=== PATIENT | male | born 1980 | race Caucasian/White ===

== ENCOUNTER 2021-07-04 22:24 | Emergency (ER) | payer BC, OTHER ==
--- NOTE | 2021-07-04 23:44 | EDM.PDOC ---
ED HPI GENERAL MEDICAL PROBLEM - General Chief Complaint: General Stated Complaint: SWELLING RIGHT UPPER RIGHT CALF JUST HAD SURGERY Time Seen by Provider: 07/04/21 23:35 Source of Information: Reports: Patient, Family History Limitations: Reports: No Limitations - History of Present Illness INITIAL COMMENTS - FREE TEXT/NARRATIVE: Patient presented to the ED because of redness and pain on his right upper leg area. He is post op achilles tendon surgery at [facility] 4 days ago. Right Middle Leg Pain Score (Numeric/FACES): 6 - Related Data Allergies Allergy/AdvReac Type Severity Reaction Status Date / Time No Known Allergies Allergy Verified 07/04/21 22:44 Home Meds: Home Meds Acetaminophen [Tylenol Extra Strength] 1,000 mg PO Q6H 07/04/21 [History] Aspirin 1 tab PO DAILY 07/04/21 [History] Docusate Sodium 1 tab PO DAILY 07/04/21 [History] Ibuprofen [Motrin] 600 mg PO Q6H 07/04/21 [History] oxyCODONE 5 mg PO Q4H PRN 07/04/21 [History] Past Medical History - Past Surgical History Musculoskeletal Surgical History: Reports: Other (See Below) Other Musculoskeletal Surgeries/Procedures:: acillies tendon repair 06/30/21 Social & Family History - Tobacco Use Tobacco Use Status *Q: Never Tobacco User - Caffeine Use Caffeine Use: Reports: Coffee - Recreational Drug Use Recreational Drug Use: No ED ROS GENERAL - Review of Systems Review Of Systems: See Below Constitutional: Reports: No Symptoms HEENT: Reports: No Symptoms Respiratory: Reports: No Symptoms Cardiovascular: Reports: No Symptoms Endocrine: Reports: No Symptoms GI/Abdominal: Reports: No Symptoms : Reports: No Symptoms Musculoskeletal: Reports: No Symptoms Skin: Reports: Change in Color Neurological: Reports: No Symptoms ED EXAM, GENERAL - Physical Exam Exam: See Below Exam Limited By: No Limitations General Appearance: Alert, No Apparent Distress Ears: Normal External Exam, Normal Canal Nose: Normal Inspection, Normal Mucosa Throat/Mouth: Normal Inspection, Normal Lips Head: Atraumatic, Normocephalic Neck: Normal Inspection, Supple, Non-Tender Respiratory/Chest: No Respiratory Distress, Lungs Clear, Normal Breath Sounds, No Accessory Muscle Use, Chest Non-Tender Cardiovascular: Normal Peripheral Pulses, Regular Rate, Rhythm, No Edema, No JVD, No Murmur GI/Abdominal: Normal Bowel Sounds, Soft, Non-Tender, No Organomegaly Back Exam: Normal Inspection, Full Range of Motion Extremities: Normal Inspection, Normal Range of Motion Neurological: Alert, Oriented, CN II-XII Intact Psychiatric: Normal Affect Skin Exam: Warm, Other (purplish discoloration proximal part of R leg) Course - Vital Signs Text/Narrative:: Lab result was reviewed and discussed with patient and his spouse Last Recorded V/S: Last Vital Signs Temp 37.0 C 07/04/21 22:30 Pulse 67 07/04/21 22:30 Resp 18 07/04/21 22:30 BP 143/82 H 07/04/21 22:30 Pulse Ox 96 07/04/21 22:30 - Orders/Labs/Meds Labs: Laboratory Tests 07/04/21 07/04/21 Range/Units 23:05 23:05 WBC 5.0 (3.2-10.1) x10-3/uL RBC 4.85 (3.90-5.90) x10(6)uL Hgb 14.9 (12.9-17.7) g/dL Hct 43.7 (38.3-50.1) % MCV 90.1 (80.8-98.7) fL MCH 30.8 (27.0-33.3) pg MCHC 34.1 (28.7-35.3) g/dL RDW 12.4 (12.4-15.0) % Plt Count 248 (117-477) x10(3)uL MPV 6.9 (6.7-11.0) fL Neut % (Auto) 42.9 (40.3-71.8) % Lymph % (Auto) 46.1 H (15.8-45.3) % [place] % (Auto) 6.5 (5.5-15.2) % Eos % (Auto) 4.1 (0.1-6.8) % Baso % (Auto) 0.4 (0.3-3.8) % Neut # (Auto) 2.2 (1.7-6.9) x10-3/uL Lymph # (Auto) 2.3 (0.5-4.5) x10-3/uL [place] # (Auto) 0.3 (0.0-1.2) x10-3/uL Eos # (Auto) 0.2 (0.0-0.6) x10-3/uL Baso # (Auto) 0.0 (0.0-0.3) x10-3/uL D-Dimer, Quantitative 0.26 (0.0-0.59) mg/LFEU Departure - Departure Time of Disposition: 23:45 Disposition: Home, Self-Care 01 Condition: Good Clinical Impression: Frostbite, Post-op pain - Discharge Information Instructions: [place], [place] Referrals: PCP,None [Primary Care Provider] - Forms: ED Department Discharge Additional Instructions: Please read discharge instructions on garcia bite or cold burn and post operative pain You can apply vaseline or cetaphil cream(over the counter) to the discolored skin twice daily for 7 days You can take ibuprofen 800 with tylenol 1000 mg every 8 hours as needed for pain/swelling Follow up as needed Sepsis Event Note (ED) - Evaluation Sepsis Screening Result: No Definite Risk - Focused Exam Vital Signs: Vital Signs Temp Pulse Resp BP Pulse Ox 07/04/21 22:30 37.0 C 67 18 143/82 H 96
== END 2021-07-04 23:55 | disposition home or self-care (01) ==
LOC: FB.ED 22:24
DX: T33 Superficial frostbite (principal); G89.18 Other acute postprocedural pain; Z79.82 Long term (current) use of aspirin
CPT/HCPCS: 36415; 85025; 85379; 99283